=== PATIENT | male | born 1955 | race Caucasian/White ===

== ENCOUNTER 2020-10-25 18:57 | Inpatient (IN) | payer MEDICARE ==
[~2020-10-25] VITALS: Ht 188 cm; Wt 99.8 kg
--- NOTE | 2020-10-25 19:42 | NUR ---
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 Pt noted to be calm and cooperative at this moment, denies hearing voices at this time. Denies any SI. Educated about safety precaution and verbalized understanding.
--- NOTE | 2020-10-25 19:50 | NUR ---
Dr. Orona at bedside, MSE in progress.
[2020-10-25 20:00] LABS: *BILIRUBIN,URIN NEGATIVE (NEGATIVE); *BLOOD, URINE NEGATIVE (NEGATIVE); *CLARITY,URINE CLEAR (CLEAR); *COLOR,URINE YELLOW (YELLOW); *KETONES,URINE NEGATIVE (NEGATIVE); *UROBILINOGEN,URINE 0.2 E.U./dl (NORMAL); LEUKOCYTE ESTERASE ,URINE NEGATIVE (NEGATIVE); NITRITE, URINE NEGATIVE (NEGATIVE); UGLUCOSE NEGATIVE (NEGATIVE)
[2020-10-25] MEDS ORDERED: POTASSIUM BICARBONATE/CIT AC 25 MEQ TABLET.EFF PO ONE (20:15)
[2020-10-25] MEDS ORDERED: POTASSIUM BICARBONATE/CIT AC 25 MEQ TABLET.EFF ONE (20:24)
[2020-10-25 20:44] LABS: CARBON DIOXIDE 30 mmol/L (21-32); CHLORIDE 108 mmol/L (98-107); CREATININE 1.6 mg/dL (0.6-1.3); GLUCOSE 116 mg/dL (74-106); POTASSIUM 4.1 mmol/L (3.5-5.1); UREA NITROGEN, BLOOD 24 mg/dL (7-18)
[2020-10-25 20:45] LABS: MAGNESIUM 2.4 mg/dL (1.8-2.4)
--- NOTE | 2020-10-25 21:36 | NUR ---
Gave report to [facility] nurse.
--- NOTE | 2020-10-25 22:08 | NUR ---
Pt. admitted to [facility] , under care of Dr. Bynum and Luis Aguilar Belongs List completed
[2020-10-25] MEDS ORDERED: BLOOD SUGAR DIAGNOSTIC 1 EACH STRIP VI ONE (22:45)
[2020-10-25] MEDS ORDERED: MAG HYDROX/AL HYDROX/SIMETH 30 ML LIQUID UDC PO PRN (22:45)
[2020-10-25] MEDS ORDERED: MAGNESIUM HYDROXIDE 30 ML LIQUID UDC PO PRN (22:45)
[2020-10-25] MEDS ORDERED: ACETAMINOPHEN 325 MG TABLET PO PRN (22:45)
--- NOTE | 2020-10-25 23:00 | NUR ---
GPS: Admitted to unit earlier a 65 yr.old male under the care of /Dr. Aguilar who was medically cleared in our E.R. Pt.is on a 72 hour hold for DTO. Pt.has been having increased auditory hallucinations/visual hallucinations telling him to hurt/kill his girlfriend, per hold. Pt.denies hearing voices at the moment. AOx2-3. Denies SI/HI. Anxious,depressed,but cooperative during interview/admission process. Pt's advisement/pt's rights handbook given. Unit rules explained. Personal belongings list completed/skin assessment done. Safe environment provided. Will continue to monitor behavior.
[2020-10-25] MEDS: ZOLPIDEM 5 MG TABLET PO PRN (23:02)
[2020-10-26 01:44] VITALS: BP 166/97
[2020-10-26 07:30] VITALS: BP 141/85
--- NOTE | 2020-10-26 07:41 | NUR ---
Firearms Report: Captain Assistant completed and submitted a [employer] firearms report for 5150 grave disability certification. A copy of report has been placed in patient chart.
--- NOTE | 2020-10-26 11:43 | NUR ---
SW Family Contact: This SW contacted patient's ex-fiance Camila ([phone]) and left her a detailed voicemail.
--- NOTE | 2020-10-26 11:43 | NUR ---
NURY Initial Discharge Plan: Patient currently resides home at [address] [place] [address]; ([phone]). Patient would want to return back home. This SW contacted patient's ex-fiwendy Jensen ([phone]) and left her a detailed voicemail. NURY will coordinate with MD and pt for proper discharge
[2020-10-26] MEDS: risperiDONE 1 MG TABLET PO SCH ×2 (12:17→17:11)
[2020-10-26] MEDS: LITHIUM CARBONATE 300 MG CAPSULE PO SCH ×2 (12:17→20:14)
--- NOTE | 2020-10-26 15:28 | NUR ---
Individual Therapy: back up worker met with patient for brief counseling on patient's presenting problem for paranoid thought content. Pt appeared depressed and withdrawn. Pt expressed to this SW that he is hearing voices that tell him to harm his roommate "ex-fiance". Pt stated that he also hears voices that tell him to hit someone. SW safety planned with pt and actively listened.
[2020-10-26 16:05] VITALS: BP 153/86
[2020-10-26 20:15] VITALS: BP 147/84
[2020-10-27 07:30] VITALS: BP 149/87
[2020-10-27] MEDS: risperiDONE 1 MG TABLET PO SCH ×2 (09:20→17:39)
[2020-10-27] MEDS: SERTRALINE HCL 50 MG TABLET PO SCH (09:21)
[2020-10-27] MEDS: LITHIUM CARBONATE 300 MG CAPSULE PO SCH ×2 (09:21→20:48)
--- NOTE | 2020-10-27 11:26 | NUR ---
Robby Note: This SW contacted patient's ex-fiance Camila ([phone]) and discussed patient's current thoughts of wanting to harm her. Camila expressed that she is aware of his thoughts. Camila stated this was the reason why he was brought to the hospital and she stated she will welcome him back home when he is stable. SW will notify her before pt is discharged and will create a safety plan.
[2020-10-27 16:00] VITALS: BP 159/100
--- NOTE | 2020-10-27 17:53 | NUR ---
Gps/Survey Research [employer] Director- Noted patient's face flushed, b/p 190/97, rechecked, denies any h/a no dizziness, called to Yg Whelan ICE CREAM MACHINE OPERATOR reviewed blood pressure, orders received.
[2020-10-27] MEDS: AMLODIPINE 5 MG TABLET PO SCH (18:18)
[2020-10-27 20:18] VITALS: BP 148/80
[2020-10-27] MEDS: ZOLPIDEM 5 MG TABLET PO PRN (21:45)
[2020-10-27] MEDS: LORAZEPAM 1 MG TABLET PO PRN (23:30)
--- NOTE | 2020-10-27 23:30 | NUR ---
Patient approached the nursing station stating, "I am hearing voices and I feel anxious". patient noted anxious. Ativan 1mg PO PRN was given. he was also asked to sit on a florinda chairs in the hallway near the nursing station for observation, will continue to monitor closely
--- NOTE | 2020-10-28 00:30 | NUR ---
Patient noted resting comfortable in a bebo chair close to the nursing station and visible. will continue to monitor.
--- NOTE | 2020-10-28 02:00 | NUR ---
patient stated, "I am not hearing the voices now. I want to go to my bed". patient is now back in his bed. Will continue to monitor very closely.
[2020-10-28] MEDS: LORAZEPAM 1 MG TABLET PO PRN (04:54)
--- NOTE | 2020-10-28 04:54 | NUR ---
patient noted awake. He continue hearing voices, having visual and auditory hallucinations. he is hyperverbal, and anxious. he stated, "God is talking to me, he told me that i did bad things and i am going to hell. Also the devil told me the same thing". "I did very bad things but i can't tell you because I could go to [facility] fair for it". "I saw negra with a metal rell in her head. she has to ". patient was reassured. Reality check done. he was told "voices are not real". Ativan 1mg po prn given. will continue to monitor closely.
--- NOTE | 2020-10-28 07:32 | NUR ---
pt slept for approx 1.30 hrs. through the night. he continue stating that he hears voices, "God told me i am going to hell". "the voices are telling me to kill Nela". patient required redirection, reality checks and reassurance for her safety. will continue to monitor closely.
[2020-10-28 08:30] VITALS: BP 117/90
[2020-10-28] MEDS: LITHIUM CARBONATE 300 MG CAPSULE PO SCH ×2 (08:43→20:25)
[2020-10-28] MEDS: risperiDONE 1 MG TABLET PO SCH (08:43)
[2020-10-28] MEDS: AMLODIPINE 5 MG TABLET PO SCH (08:43)
[2020-10-28] MEDS: SERTRALINE HCL 50 MG TABLET PO SCH (08:43)
[2020-10-28] MEDS ORDERED: AMLODIPINE 5 MG TABLET PO SCH (09:00)
[2020-10-28 16:00] VITALS: BP 119/95
[2020-10-28] MEDS: risperiDONE 2 MG TABLET PO SCH (16:32)
--- NOTE | 2020-10-28 16:41 | NUR ---
Gps/Home School Teacher- Patient claimed he still hearing voice, and was telling him he is going to hell , and he already knows family members that are in heaven and some in hell. Claimed he didnt sleep well last night because the voice kept ringing him Encouraged continued verbalizations of his feelings and needs
[2020-10-28] MEDS ORDERED: risperiDONE 1 MG TABLET PO SCH (17:00)
[2020-10-28 20:00] VITALS: BP 174/92
[2020-10-28] MEDS ORDERED: CLONIDINE HCL 0.1 MG TABLET PO PRN (20:15)
[2020-10-28 21:00] VITALS: BP 147/91
--- NOTE | 2020-10-29 06:17 | NUR ---
Gps: Remain calm and cooperative. v/s wnl this morning. Patient claimed he still hearing voice, Encouraged continued verbalizations of his feelings and needs. slept 8.30 hrs through the night. resting on bed comfortably. continue plan of care.
--- NOTE | 2020-10-29 08:00 | NUR ---
NURSE REPORT REPORT OBTAINED FROM NIGHT NURSE NURSE HENRY AT 0715 AND THIS NURSE ASSUMED CARE OF PATIENT. RECEIVED PATIENT ASLEEP IN THE AM, WITHOUT ANY SXS OF PAIN OR DISCOMFORT. SUSHIL. CATARINO.
[2020-10-29 08:08] VITALS: BP 123/83
[2020-10-29 08:45] LABS: CREATININE 1.1 mg/dL (0.6-1.3)
[2020-10-29] MEDS: LITHIUM CARBONATE 300 MG CAPSULE PO SCH ×2 (09:20→21:03)
[2020-10-29] MEDS: SERTRALINE HCL 50 MG TABLET PO SCH (09:20)
[2020-10-29] MEDS: risperiDONE 2 MG TABLET PO SCH ×2 (09:20→16:43)
[2020-10-29] MEDS: AMLODIPINE 5 MG TABLET PO SCH (09:22)
--- NOTE | 2020-10-29 13:00 | NUR ---
NURSE NOTES Patient encouraged to eat meals, but he refuses. Stated he hear voices. Stayed in room all day.
[2020-10-29 16:32] VITALS: BP 134/76
--- NOTE | 2020-10-29 19:10 | NUR ---
NURSE REPORT Report given to night nurse Nafisa and Kardex given. VSS. Afeb. Patient refused to eat meals. Just sitting in bed and looking down at the floor. No c/o pain or discomfort.
[2020-10-29 20:00] VITALS: BP 141/80
[2020-10-30 07:55] VITALS: BP 148/79
[2020-10-30] MEDS: AMLODIPINE 5 MG TABLET PO SCH (08:46)
[2020-10-30] MEDS: risperiDONE 2 MG TABLET PO SCH ×2 (08:46→20:52)
[2020-10-30] MEDS: SERTRALINE HCL 50 MG TABLET PO SCH (08:46)
[2020-10-30] MEDS: LITHIUM CARBONATE 300 MG CAPSULE PO SCH ×2 (08:46→20:52)
[2020-10-30 16:59] VITALS: BP 149/85
[2020-10-30 20:09] VITALS: BP 139/80
[2020-10-31 07:30] VITALS: BP 157/87
[2020-10-31] MEDS: LITHIUM CARBONATE 300 MG CAPSULE PO SCH ×2 (08:22→17:38)
[2020-10-31] MEDS: risperiDONE 2 MG TABLET PO SCH ×3 (08:22→20:45)
[2020-10-31] MEDS: SERTRALINE HCL 50 MG TABLET PO SCH (08:22)
[2020-10-31] MEDS: AMLODIPINE 5 MG TABLET PO SCH (08:23)
--- NOTE | 2020-10-31 10:52 | NUR ---
NURY PC Hearing: Patient had 5250 probable cause hearing today and it was upheld for grave disability.
[2020-10-31 15:33] VITALS: BP 150/77
[2020-10-31 20:28] VITALS: BP 142/84
[2020-11-01 07:30] VITALS: BP 124/76
[2020-11-01] MEDS: LITHIUM CARBONATE 300 MG CAPSULE PO SCH ×3 (08:45→16:10)
[2020-11-01] MEDS: SERTRALINE HCL 50 MG TABLET PO SCH (08:46)
[2020-11-01] MEDS: risperiDONE 2 MG TABLET PO SCH ×2 (08:46→20:55)
[2020-11-01] MEDS: AMLODIPINE 10 MG TABLET PO SCH (08:46)
[2020-11-01] MEDS: CARVEDILOL 6.25 MG TABLET PO SCH ×2 (08:48→16:12)
[2020-11-01] MEDS ORDERED: AMLODIPINE 5 MG TABLET PO SCH (09:00)
[2020-11-01 15:48] VITALS: BP 130/72
[2020-11-01 20:11] VITALS: BP 142/71
[2020-11-01] MEDS ORDERED: SERTRALINE HCL 50 MG TABLET PO SCH (21:00)
--- NOTE | 2020-11-02 07:15 | NUR ---
NURSE REPORT Report obtained from night nurse Yahaira and this nurse assumed care of patient. Received patient asleep at beginning of shift. No sxs of pain or discomfort noted. VSS. Afeb.
[2020-11-02 07:30] VITALS: BP 117/65
--- NOTE | 2020-11-02 08:30 | NUR ---
NURSE CARE Meals taken well. Sitting up on side of bed and eating. He complained that breakfast was late. BP 117/65. ON BP meds of Coreg and Norvasc.
[2020-11-02] MEDS: risperiDONE 2 MG TABLET PO SCH ×2 (09:21→20:39)
[2020-11-02] MEDS: LITHIUM CARBONATE 300 MG CAPSULE PO SCH ×3 (09:21→18:23)
[2020-11-02] MEDS: AMLODIPINE 10 MG TABLET PO SCH (09:22)
[2020-11-02] MEDS: CARVEDILOL 6.25 MG TABLET PO SCH ×2 (09:22→18:25)
[2020-11-02 16:00] VITALS: BP 117/73
--- NOTE | 2020-11-02 16:00 | NUR ---
NURSE CARE Patient didn't attend group today, but stays in room. Although eating meals. On [place].
--- NOTE | 2020-11-02 19:15 | NUR ---
NURSE REPORT Report given to night nurse Tristine to assume care of patient. VSS. Afeb. No prn given.
[2020-11-02 20:18] VITALS: BP 136/70
[2020-11-03 07:30] VITALS: BP 140/83
[2020-11-03] MEDS: LITHIUM CARBONATE 300 MG CAPSULE PO SCH ×3 (09:03→17:14)
[2020-11-03] MEDS: VENLAFAXINE XR 75 MG TAB.ER.24H PO SCH (09:03)
[2020-11-03] MEDS: risperiDONE 2 MG TABLET PO SCH ×2 (09:03→20:48)
[2020-11-03] MEDS: AMLODIPINE 10 MG TABLET PO SCH (09:04)
[2020-11-03] MEDS: CARVEDILOL 6.25 MG TABLET PO SCH ×2 (09:05→17:16)
--- NOTE | 2020-11-03 15:51 | NUR ---
Gps/Carbon Plant Grinder- Tends to stay in bed most of the time, encouraged participation in his group therapy , encouraged verbalizations of his needs and feeling. Claimed he still hears voices from time to time. Encouraged staying in the activity room during meals
[2020-11-03 16:00] VITALS: BP 141/80
[2020-11-03 20:00] VITALS: BP 134/73
--- NOTE | 2020-11-04 00:28 | NUR ---
RECEIVED HIM IN BED AWAKE.ISOLATIVE AND SUSPICIOUS. REQUESTED TO KNOW WHAT HIS MEDICATIONS WILL DO FOR HIM. EXPLANATIONS GIVEN. HE IS MEDICATION COMPLIANT.VISUAL CHECKS MADE ON HIM FOR SAFETY. WILL CONTINUE TO MONITOR.
--- NOTE | 2020-11-04 06:21 | NUR ---
HE SLEPT FOR 9:00 HOURS.
[2020-11-04 07:56] VITALS: BP 125/74
[2020-11-04] MEDS: VENLAFAXINE XR 75 MG TAB.ER.24H PO SCH (08:54)
[2020-11-04] MEDS: LITHIUM CARBONATE 300 MG CAPSULE PO SCH ×3 (08:55→17:23)
[2020-11-04] MEDS: CARVEDILOL 6.25 MG TABLET PO SCH ×2 (08:56→17:26)
[2020-11-04] MEDS: AMLODIPINE 10 MG TABLET PO SCH (08:56)
[2020-11-04] MEDS ORDERED: risperiDONE 2 MG TABLET PO SCH (09:00)
--- NOTE | 2020-11-04 14:21 | NUR ---
Gps/Web Solutions Architect- Patient stayed in his room most of the morning, encouraged to attend his group therapy, does not was to be told the importance of participating his group tx. Face flushed, guarded , hesitant to answer questions , how he is feeling today " please leave me alone " per patient.
[2020-11-04 16:43] VITALS: BP 129/74
[2020-11-04] MEDS: BENZTROPINE MESYLATE 0.5 MG TABLET PO SCH (17:23)
[2020-11-04] MEDS: HALOPERIDOL 5 MG TABLET PO SCH (17:23)
[2020-11-04 20:20] VITALS: BP 133/75
[2020-11-04] MEDS: risperiDONE 2 MG TABLET PO SCH (20:54)
[2020-11-05 07:36] VITALS: BP 125/74
[2020-11-05] MEDS: VENLAFAXINE XR 75 MG TAB.ER.24H PO SCH (08:19)
[2020-11-05] MEDS: BENZTROPINE MESYLATE 0.5 MG TABLET PO SCH ×2 (08:19→16:31)
[2020-11-05] MEDS: LITHIUM CARBONATE 300 MG CAPSULE PO SCH ×3 (08:20→16:31)
[2020-11-05] MEDS: CARVEDILOL 6.25 MG TABLET PO SCH ×2 (08:20→16:32)
[2020-11-05] MEDS: AMLODIPINE 10 MG TABLET PO SCH (08:20)
[2020-11-05] MEDS: HALOPERIDOL 5 MG TABLET PO SCH ×2 (08:20→16:31)
[2020-11-05 16:45] VITALS: BP 122/68
[2020-11-05 20:00] VITALS: BP 141/65
[2020-11-05] MEDS: risperiDONE 2 MG TABLET PO SCH (20:54)
[2020-11-06 07:30] VITALS: BP 117/67
[2020-11-06] MEDS: VENLAFAXINE XR 75 MG TAB.ER.24H PO SCH (08:34)
[2020-11-06] MEDS: CARVEDILOL 6.25 MG TABLET PO SCH ×2 (08:35→16:28)
[2020-11-06] MEDS: LITHIUM CARBONATE 300 MG CAPSULE PO SCH ×3 (08:35→16:28)
[2020-11-06] MEDS: BENZTROPINE MESYLATE 0.5 MG TABLET PO SCH ×2 (08:36→16:29)
[2020-11-06] MEDS: AMLODIPINE 10 MG TABLET PO SCH (08:36)
[2020-11-06] MEDS: HALOPERIDOL 5 MG TABLET PO SCH ×2 (08:37→16:29)
--- NOTE | 2020-11-06 11:58 | NUR ---
Gps>writer editor- Quiet , isolative, stays in bed most of the time this am, encouraged to attend and participates in his group therapy. Claimed he still hears voices, but less.
[2020-11-06 16:00] VITALS: BP 114/69
[2020-11-06] MEDS: risperiDONE 2 MG TABLET PO SCH (20:02)
[2020-11-06 20:04] VITALS: BP 116/62
--- NOTE | 2020-11-06 20:04 | NUR ---
Received patient in his room in bed. He is noted awake A/O x 3. calm and cooperative upon approached. he continue isolative and withdrawn. he stated he continue hearing voices but they are less and less and less. he stated, "the voices sometimes tell me to do things with people, but I don't listen to them". patient denied SI/HI or any thought to harm self or others. he is able to verbally CFS. Denial is convincing. PO fluids and snacks were offered. he is reassure for his safety, safety and fall precaution in place. will continue to monitor.
--- NOTE | 2020-11-07 07:15 | NUR ---
NURSE REPORT Obtained report from night nurse Jalil and this nurse assumed care of patient. Received patient asleep at beginning of shift. No sxs of pain or distress. VSS. Afeb. BP 131/65.
[2020-11-07 07:30] VITALS: BP 131/65
[2020-11-07] MEDS: LITHIUM CARBONATE 300 MG CAPSULE PO SCH ×3 (09:33→17:25)
[2020-11-07] MEDS: HALOPERIDOL 5 MG TABLET PO SCH ×3 (09:33→20:14)
[2020-11-07] MEDS: VENLAFAXINE XR 75 MG TAB.ER.24H PO SCH (09:33)
[2020-11-07] MEDS: CARVEDILOL 6.25 MG TABLET PO SCH ×2 (09:34→17:27)
[2020-11-07] MEDS: AMLODIPINE 10 MG TABLET PO SCH (09:34)
[2020-11-07] MEDS: BENZTROPINE MESYLATE 0.5 MG TABLET PO SCH ×2 (09:39→17:26)
--- NOTE | 2020-11-07 12:00 | NUR ---
NURSE CARE VSS. AFEB. BP 131/65 AND 135/75. MEALS TAKEN 100%. NO C/O PAIN OR DISCOMFORT. ON COREG AND NORVASC. NO VISUAL HALLUCINATION. ON COGENTIN, HALDOL AND EFFEXOR.
--- NOTE | 2020-11-07 12:52 | NUR ---
SW Family Contact: This spoke with patient's ex-emily Jensen ([phone]) and discussed updated treatment and discharge plan.
[2020-11-07 15:14] VITALS: BP 135/75
--- NOTE | 2020-11-07 18:00 | NUR ---
NURSE CARE Patient stays in room most of the day. Meals taken 100%. VSS. Afeb. No c/o pain or discomfort.
--- NOTE | 2020-11-07 19:15 | NUR ---
NURSE REPORT AND ENDORSEMENT Report given to night nurse BLAINE to assume care of patient. Kardex given and all questions asked.
[2020-11-07 20:08] VITALS: BP 138/77
[2020-11-08 07:30] VITALS: BP 119/72
[2020-11-08] MEDS: BENZTROPINE MESYLATE 0.5 MG TABLET PO SCH ×2 (08:30→17:09)
[2020-11-08] MEDS: LITHIUM CARBONATE 300 MG CAPSULE PO SCH ×3 (08:30→17:09)
[2020-11-08] MEDS: VENLAFAXINE XR 75 MG TAB.ER.24H PO SCH (08:31)
[2020-11-08] MEDS: CARVEDILOL 6.25 MG TABLET PO SCH ×2 (08:31→17:12)
[2020-11-08] MEDS: HALOPERIDOL 5 MG TABLET PO SCH ×3 (08:31→20:15)
[2020-11-08] MEDS: AMLODIPINE 10 MG TABLET PO SCH (08:33)
[2020-11-08 16:03] VITALS: BP 120/67
[2020-11-08 20:22] VITALS: BP 118/66
[2020-11-09 07:56] VITALS: BP 121/74
--- NOTE | 2020-11-09 08:00 | NUR ---
NURSE REPORT Report obtained from night nurse BLAINE at 0715 and this nurse assumed care of patient. Received patient asleep without any sxs of pain or discomfort. VSS. Afeb. Breakfast taken 100%.
--- NOTE | 2020-11-09 08:00 | NUR ---
NURSE REPORT Report obtained from BLAINE at 0715 and this nurse assumed care of patient. Received pateint asleep without any sxs of pain or distress. VSS. Afeb Breakfast taken well.
[2020-11-09] MEDS: VENLAFAXINE XR 75 MG TAB.ER.24H PO SCH (08:38)
[2020-11-09] MEDS: HALOPERIDOL 5 MG TABLET PO SCH ×3 (08:38→20:07)
[2020-11-09] MEDS: AMLODIPINE 10 MG TABLET PO SCH (08:38)
[2020-11-09] MEDS: LITHIUM CARBONATE 300 MG CAPSULE PO SCH ×3 (08:38→17:49)
[2020-11-09] MEDS: BENZTROPINE MESYLATE 0.5 MG TABLET PO SCH ×2 (08:38→17:49)
[2020-11-09] MEDS: CARVEDILOL 6.25 MG TABLET PO SCH ×2 (08:41→18:32)
--- NOTE | 2020-11-09 12:40 | NUR ---
NURY SNF Referral: NURY faxed patient's referral packet to [facility] for review and possible placement attention to Radha ([phone]).
--- NOTE | 2020-11-09 14:57 | NUR ---
SW SNF Referral: This SW faxed clinicals to [facility] for [facility] option ([phone]).
[2020-11-09 15:48] VITALS: BP 120/69
--- NOTE | 2020-11-09 16:15 | NUR ---
NURSE CARE COVID-19 SWAB OBTAINED AT 1610 BECAUSE PATIENT TO BE DISCHARGED TOMORROW. SPECIMEN BROUGHT TO LAB AT 1615.
--- NOTE | 2020-11-09 18:00 | NUR ---
NURSE CARE VSS AFEB. No c/o pain or discomfort. Covid swab done at 1410. Being discharged tomorrow. Dinner taken well.
--- NOTE | 2020-11-09 19:15 | NUR ---
NURSE REPORT AND ENDORSEMENT Report given to night nurse BLAINE to assume care of patient. Kardex given. VSS. Afeb. covid-19 antigen negative for 1610 swab that was done by this nurse. Discharge tomorrow. Abby Colón RN
[2020-11-09 21:14] VITALS: BP 118/67
--- NOTE | 2020-11-10 06:39 | NUR ---
GPS: Pt.slept 8.15 last night. No new behavioral problems exhibited. Continues to hear voices but less. Safety emphasized.
[2020-11-10 07:30] VITALS: BP 128/77
--- NOTE | 2020-11-10 08:00 | NUR ---
NURSE REPORT Report obtained from night nurse BLAINE and this nurse assumed care of patient. Received patient asleep at beginning of dayshift. No sxs of pain or distress. VSS. Afeb. No c/o p[ain or discomfort.
--- NOTE | 2020-11-10 08:03 | NUR ---
Discharge Note: Patient will be discharged today to [facility] [address] [place] [address] ([phone]). Patient will be provided ambulance transportation at 12PM. Spoke with Radha, employee wellness/fitness coordinator ([phone]) at the facility who stated they are ready to accept the patient today. Patient is alert and oriented x3 and is not able to plan for self-care at this time but is willing to accept care provided for him at the facility. Patient denies any suicidal or homicidal ideation. Patient is aware and agreeable with discharge plans. Patient will continue to follow-up with her (Psychiatrist) Dr. Mckenzie and ([place]) Dr. Heard at [facility]. Patient presents with euthymic mood and congruent affect. Patients ex-andre Jensen ([phone]) is aware and agreeable with discharge plan.
[2020-11-10] MEDS: LITHIUM CARBONATE 300 MG CAPSULE PO SCH ×3 (09:12→17:00)
[2020-11-10] MEDS: VENLAFAXINE XR 75 MG TAB.ER.24H PO SCH (09:12)
[2020-11-10] MEDS: HALOPERIDOL 5 MG TABLET PO SCH ×2 (09:12→17:00)
[2020-11-10] MEDS: BENZTROPINE MESYLATE 0.5 MG TABLET PO SCH ×2 (09:12→17:00)
[2020-11-10 09:13] VITALS: BP 128/77
[2020-11-10] MEDS: AMLODIPINE 10 MG TABLET PO SCH (09:13)
[2020-11-10] MEDS: CARVEDILOL 6.25 MG TABLET PO SCH ×2 (09:13→18:00)
--- NOTE | 2020-11-10 10:17 | NUR ---
Robby Note: This spoke with patient's ex-fiance Camila ([phone]) and informed of patient's discharge today to [facility]. Camila is aware and agreeable.
--- NOTE | 2020-11-10 14:00 | NUR ---
NURSE REPORT Report given to nurse at [facility], where patient will be transferred at 1430.
--- NOTE | 2020-11-10 15:10 | NUR ---
DISCHARGE NOTE Discharge to [facility]. D/C instructions given to patient and he verbalized understandings of instructions. He signed the form for instructions and also property management form. D/C via gurney with newspaper delivery driver.
== END 2020-11-10 15:00 | DRG 885 ==
LOC: ER 19:03 → GPS 21:47
PROVIDERS: ADMIT Psychiatry & Neurology Psychiatry; ATTEND Nurse Practitioner Family
DX: F31.5 Bipolar disorder, current episode depressed, severe, with psychotic features (principal); N17.0 Acute kidney failure with tubular necrosis; Z91.14 Patient's other noncompliance with medication regimen; E87.6 Hypokalemia; I10 Essential (primary) hypertension; E86.0 Dehydration; E78.5 Hyperlipidemia, unspecified; Z79.899 Other long term (current) drug therapy; R73.9 Hyperglycemia, unspecified; Z80.0 Family history of malignant neoplasm of digestive organs; Z80.41 Family history of malignant neoplasm of ovary
CPT/HCPCS: 36415; 70030-TC; 83735; 93005; A4663